=== PATIENT | male | born 1945 | race Caucasian/White ===

== ENCOUNTER 2018-06-24 08:49 | Day surgery (SDC) | payer MEDICARE, BC ==
[2018-06-24] MEDS: Polymyxin B/Trimethoprim 10 ML Bottle EYERT SCH ×4 (09:00→10:59)
[2018-06-24] MEDS: Brimonidine 0.2% Ophth Soln 5 ML Bottle EYERT SCH ×4 (09:05→10:59)
--- NOTE | 2018-06-24 09:09 | PCM.PREANE ---
Preanesthetic Assessment - Anesthesia/Transfusion/Family Hx Anesthesia History: Prior Anesthesia Without Reaction Family History of Anesthesia Reaction: No Transfusion History: No Prior Transfusion(s) - Review of Systems General: No Symptoms Pulmonary: Shortness of Breath (pt has asbestosis) Cardiovascular: No Symptoms Gastrointestinal: No Symptoms Neurological: No Symptoms Other: Reports: None - Physical Assessment NPO Status Date: 06/23/18 NPO Status Time: 21:00 Pulse: 61 O2 Sat by Pulse Oximetry: 97 Respiratory Rate: 16 Blood Pressure: 161/70 Temperature: 98.2 C ASA Class: 3 Mental Status: Alert & Oriented x3 Airway Class: Mallampati = 3 Dentition: Reports: Normal Dentition Thyro-Mental Finger Breadths: 2 Mouth Opening Finger Breadths: 2 ROM/Head Extension: Full Lungs: Clear to Auscultation, Decreased Breath Sounds (LLL) Cardiovascular: Regular Rate, Regular Rhythm - Allergies Allergies/Adverse Reactions: Allergies Allergy/AdvReac Type Severity Reaction Status Date / Time acetaminophen Allergy Cannot Verified 06/23/18 13:51 [From Lorcet (hydrocodone)] Remember hydrocodone Allergy Cannot Verified 06/23/18 13:51 [From Lorcet (hydrocodone)] Remember levofloxacin [From Levaquin] Allergy Cannot Verified 06/23/18 13:51 Remember - Anesthesia Plan Beta Daria: Metoprolol Med Last Dose Date: 06/23/18 Med Last Dose Time: 09:00 - Acknowledgements Anesthesia Type Planned: MAC Pt an Appropriate Candidate for the Planned Anesthesia: Yes Alternatives and Risks of Anesthesia Discussed w Pt/Guardian: Yes Pt/Guardian Understands and Agrees with Anesthesia Plan: Yes PreAnesthesia Questionnaire HEENT History: Reports: Cataract Cardiovascular History: Reports: Bypass (family history CAD), CAD, Hypertension , Stents Respiratory History: Reports: SOB, Other (See Below) (asbestosis) Genitourinary History: Reports: Renal Calculus Musculoskeletal History: Reports: None Neurological History: Reports: None Psychiatric History: Reports: None Endocrine/Metabolic History: Reports: Diabetes, Type I (BS 152 @ 0715) - Past Surgical History HEENT Surgical History: Reports: Myringotomy w Tube(s), Tonsillectomy Cardiovascular Surgical History: Reports: Coronary Artery Bypass, Coronary Artery Stent Respiratory Surgical History: Reports: Thoracentesis Male Surgical History: Reports: Lithotripsy (ESWL), Renal Calculus Musculoskeletal Surgical History: Reports: Carpal Tunnel, Other (See Below) ((L ) knee) - SUBSTANCE USE Smoking Status *Q: Never Smoker - HOME MEDS Home Medications: Home Meds Ezetimibe [Zetia] 10 mg PO DAILY 10/17/16 [History] Insulin Glargine,Hum.Rec.Anlog [Toujeo Solostar] 74 units SQ BEDTIME 10/17/16 [ History] Insulin Lispro [Humalog] 15 unit SQ 1200 10/17/16 [History] Losartan [Cozaar] 100 mg PO DAILY 10/17/16 [History] Metoprolol Succinate 50 mg PO DAILY 10/17/16 [History] Tamsulosin HCl [Flomax] 0.4 mg PO DAILY 10/17/16 [History] metFORMIN HCl [Glucophage] 1,000 mg PO BID 10/17/16 [History] Apixaban [Eliquis] 5 mg PO BID 06/23/18 [History] Azelastine HCl 1 dose NASBOTH BID 06/23/18 [History] Febuxostat [Uloric] 40 mg PO DAILY 06/23/18 [History] Finasteride 5 mg PO DAILY 06/23/18 [History] Insulin Lispro [Humalog] 18 units SQ QAM 06/23/18 [History] Insulin Lispro [Humalog] 24 units SQ QPM 06/23/18 [History] Vitamin E 400 unit PO DAILY 06/23/18 [History] amLODIPine [Norvasc] 2.5 mg PO DAILY 06/23/18 [History] atorvaSTATin Calcium [Lipitor] 40 mg PO DAILY 06/23/18 [History] hydroCHLOROthiazide [Hydrochlorothiazide] 25 mg PO DAILY 06/23/18 [History] - CURRENT (IN HOUSE) MEDS Current Meds: Current Medications Brimonidine Tartrate (Alphagan 0.2% Ophth Soln) 0 ml EYERT ASDIRECTED [place] Stop: 06/24/18 23:00 Cefuroxime Sodium (Zinacef) 0 mg EYERT ASDIRECTED [place] Stop: 06/24/18 23:00 Lidocaine HCl (Xylocaine-Mpf 1%) 0 ml INJECT ASDIRECTED [place] Stop: 06/24/18 23:00 Phenylephrine HCl (Julio-Synephrine 2.5% Ophth Soln) 0 ml EYERT ASDIRECTED [place] Stop: 06/24/18 23:00 Pilocarpine HCl (Pilocar 4% Ophth Soln) 0 ml EYERT ASDIRECTED [place] Stop: 06/24/18 23:00 Polymyxin/Trimethoprim Sulfate (Polytrim Ophth Soln) 0 ml EYERT ASDIRECTED [place] Stop: 06/24/18 23:00 Last Admin: 06/24/18 09:00 Dose: 1 drop Tetracaine HCl (Tetracaine 0.5% Steri-Unit Vilma) 0 ml EYERT ASDIRECTED [place] Stop: 06/24/18 23:00 Tropicamide (Mydriacyl 1% Ophth Soln) 0 ml EYERT ASDIRECTED [place] Stop: 06/24/18 23:00
[2018-06-24] MEDS: Phenylephrine 2.5% Ophth Soln 2 ML Bot EYERT SCH ×6 (09:10→10:37)
[2018-06-24] MEDS: Tropicamide 1% Ophth Soln 15 ML Bottle EYERT SCH ×4 (09:15→10:00)
[2018-06-24] MEDS: Tetracaine HCl/PF 0.5% 4 ML Bottle EYERT SCH ×5 (10:10→10:47)
[2018-06-24] MEDS: Lidocaine 1% PF 2 ML SDV INJECT SCH ×2 (10:21→10:46)
[2018-06-24] MEDS: Cefuroxime 10 MG/ML SYRINGE EYERT SCH ×2 (10:22→10:58)
[2018-06-24] MEDS: Pilocarpine 4% Ophth Soln 15 ML Bot EYERT SCH ×2 (10:22→10:59)
--- NOTE | 2018-06-24 11:05 | PCM48HPAN ---
Post Anesthesia Note - EVALUATION WITHIN 48HRS OF ANESTHETIC Vital Signs in Normal Range: Yes Patient Participated in Evaluation: Yes Respiratory Function Stable: Yes Airway Patent: Yes Cardiovascular Function Stable: Yes Hydration Status Stable: Yes Pain Control Satisfactory: Yes Nausea and Vomiting Control Satisfactory: Yes Mental Status Recovered: Yes Pulse Rate: 58 SaO2: 96 Resp Rate: 14 Temperature: 98.2 C Blood Pressure: 164/79
[2018-06-24 11:19] VITALS: BP 159/78
== END 2018-06-24 11:10 | disposition home or self-care (01) ==
LOC: JD.SDS 08:49
PROVIDERS: ATTEND Ophthalmology
DX: E10.36 Type 1 diabetes mellitus with diabetic cataract (principal); H25.813 Combined forms of age-related cataract, bilateral; I11.0 Hypertensive heart disease with heart failure; I50.9 Heart failure, unspecified; J44.9 Chronic obstructive pulmonary disease, unspecified; E78.00 Pure hypercholesterolemia, unspecified; M10.9 Gout, unspecified; H35.3131 Nonexudative age-related macular degeneration, bilateral, early dry stage; H35.363 Drusen (degenerative) of macula, bilateral; H02.834 Dermatochalasis of left upper eyelid; H02.831 Dermatochalasis of right upper eyelid; H02.413 Mechanical ptosis of bilateral eyelids; H16.103 Unspecified superficial keratitis, bilateral; Z79.82 Long term (current) use of aspirin; Z79.4 Long term (current) use of insulin; Z79.899 Other long term (current) drug therapy
CPT/HCPCS: 66984; A9270; J0697; J2001; V2632

== ENCOUNTER 2018-07-22 07:45 | Day surgery (SDC) | payer MEDICARE, BC ==
[2018-07-22] MEDS: Polymyxin B/Trimethoprim 10 ML Bottle EYELF SCH ×4 (07:55→09:54)
[2018-07-22] MEDS: Brimonidine 0.2% Ophth Soln 5 ML Bottle EYELF SCH ×4 (08:00→09:54)
[2018-07-22] MEDS: Phenylephrine 2.5% Ophth Soln 2 ML Bot EYELF SCH ×6 (08:05→09:35)
[2018-07-22] MEDS: Tropicamide 1% Ophth Soln 15 ML Bottle EYELF SCH ×4 (08:10→08:50)
--- NOTE | 2018-07-22 08:25 | PCM.PREANE ---
Preanesthetic Assessment - Anesthesia/Transfusion/Family Hx Anesthesia History: Prior Anesthesia Without Reaction Family History of Anesthesia Reaction: No Transfusion History: No Prior Transfusion(s) - Review of Systems General: No Symptoms Pulmonary: No Symptoms Cardiovascular: No Symptoms Gastrointestinal: No Symptoms Neurological: No Symptoms Other: Reports: None - Physical Assessment NPO Status Date: 07/22/18 NPO Status Time: 06:30 Pulse: 63 O2 Sat by Pulse Oximetry: 96 Respiratory Rate: 16 Blood Pressure: 171/75 Vital Signs: Last Vital Signs Temp 36.3 C 07/22/18 07:48 Pulse 63 07/22/18 08:18 Resp 16 07/22/18 07:48 BP 171/75 H 07/22/18 08:18 Pulse Ox 96 07/22/18 07:48 Height: 1.78 m Weight: 97.976 kg ASA Class: 3 Mental Status: Alert & Oriented x3 Airway Class: Mallampati = 2 Dentition: Reports: Normal Dentition Thyro-Mental Finger Breadths: 3 Mouth Opening Finger Breadths: 3 ROM/Head Extension: Full Lungs: Clear to Auscultation, Normal Respiratory Effort Cardiovascular: Regular Rate, Regular Rhythm - Lab Values: Laboratory Last Values POC Glucose 128 mg/dL (83-110) H 07/22/18 07:58 - Allergies Allergies/Adverse Reactions: Allergies Allergy/AdvReac Type Severity Reaction Status Date / Time acetaminophen Allergy Cannot Verified 07/21/18 14:35 [From Lorcet (hydrocodone)] Remember hydrocodone Allergy Cannot Verified 07/21/18 14:35 [From Lorcet (hydrocodone)] Remember levofloxacin [From Levaquin] Allergy Cannot Verified 07/21/18 14:35 Remember rivaroxaban [From Xarelto] Allergy Cannot Verified 07/21/18 14:35 Remember - Anesthesia Plan Beta Daria: Metoprolol Med Last Dose Date: 07/22/18 Med Last Dose Time: 08:20 - Acknowledgements Anesthesia Type Planned: MAC Pt an Appropriate Candidate for the Planned Anesthesia: Yes Alternatives and Risks of Anesthesia Discussed w Pt/Guardian: Yes Pt/Guardian Understands and Agrees with Anesthesia Plan: Yes PreAnesthesia Questionnaire HEENT History: Reports: Cataract Cardiovascular History: Reports: Bypass (family history CAD), CAD, Hypertension , Stents Respiratory History: Reports: SOB, Other (See Below) (asbestosis) Genitourinary History: Reports: Renal Calculus Musculoskeletal History: Reports: None Neurological History: Reports: None Psychiatric History: Reports: None Endocrine/Metabolic History: Reports: Diabetes, Type I (BS 152 @ 6815) - Past Surgical History HEENT Surgical History: Reports: Myringotomy w Tube(s), Tonsillectomy Cardiovascular Surgical History: Reports: Coronary Artery Bypass, Coronary Artery Stent Respiratory Surgical History: Reports: Thoracentesis Male Surgical History: Reports: Lithotripsy (ESWL), Renal Calculus Musculoskeletal Surgical History: Reports: Carpal Tunnel, Other (See Below) ((L ) knee) - SUBSTANCE USE Smoking Status *Q: Never Smoker - HOME MEDS Home Medications: Home Meds Ezetimibe [Zetia] 10 mg PO DAILY 10/17/16 [History] Insulin Glargine,Hum.Rec.Anlog [Toujeo Solostar] 74 units SQ BEDTIME 10/17/16 [ History] Insulin Lispro [Humalog] 15 unit SQ 1200 10/17/16 [History] Losartan [Cozaar] 100 mg PO DAILY 10/17/16 [History] Metoprolol Succinate 50 mg PO DAILY 10/17/16 [History] Tamsulosin HCl [Flomax] 0.4 mg PO DAILY 10/17/16 [History] metFORMIN HCl [Glucophage] 1,000 mg PO BID 10/17/16 [History] Apixaban [Eliquis] 5 mg PO BID 06/23/18 [History] Azelastine HCl 1 dose NASBOTH BID 06/23/18 [History] Febuxostat [Uloric] 40 mg PO DAILY 06/23/18 [History] Finasteride 5 mg PO DAILY 06/23/18 [History] Insulin Lispro [Humalog] 18 units SQ QAM 06/23/18 [History] Vitamin E 400 unit PO DAILY 06/23/18 [History] amLODIPine [Norvasc] 2.5 mg PO DAILY 06/23/18 [History] atorvaSTATin Calcium [Lipitor] 40 mg PO DAILY 06/23/18 [History] hydroCHLOROthiazide [Hydrochlorothiazide] 25 mg PO DAILY 06/23/18 [History] - CURRENT (IN HOUSE) MEDS Current Meds: Current Medications Brimonidine Tartrate (Alphagan 0.2% [facility] Soln) 0 ml EYELF ASDIRECTED [place] Stop: 07/22/18 18:00 Last Admin: 07/22/18 08:00 Dose: 1 drop Cefuroxime Sodium (Zinacef) 0 mg EYELF ASDIRECTED [place] Stop: 07/22/18 18:00 Lidocaine HCl (Xylocaine-Mpf 1%) 0 ml INJECT ASDIRECTED [place] Stop: 07/22/18 18:00 Metoprolol Succinate (Toprol Xl) 50 mg PO ONETIME ONE Stop: 07/22/18 08:31 Last Admin: 07/22/18 08:18 Dose: 50 mg Phenylephrine HCl (Julio-Synephrine 2.5% Ophth Soln) 0 ml EYELF ASDIRECTED [place] Stop: 07/22/18 18:00 Last Admin: 07/22/18 08:15 Dose: 1 drop Pilocarpine HCl (Pilocar 4% Ophth Soln) 0 ml EYELF ASDIRECTED [place] Stop: 07/22/18 18:00 Polymyxin/Trimethoprim Sulfate (Polytrim Ophth Soln) 0 ml EYELF ASDIRECTED [place] Stop: 07/22/18 18:00 Last Admin: 07/22/18 07:55 Dose: 1 drop Tetracaine HCl (Tetracaine 0.5% Steri-Unit Vilma) 0 ml EYELF ASDIRECTED [place] Stop: 07/22/18 18:00 Tropicamide (Mydriacyl 1% Ophth Soln) 0 ml EYELF ASDIRECTED [place] Stop: 07/22/18 18:00 Last Admin: 07/22/18 08:20 Dose: 1 drop
[2018-07-22] MEDS ORDERED: Metoprolol Succinate 50 MG Tab.ER PO ONE (08:30)
[2018-07-22] MEDS: Tetracaine HCl/PF 0.5% 4 ML Bottle EYELF SCH ×5 (08:55→09:40)
[2018-07-22] MEDS: Lidocaine 1% PF 2 ML SDV INJECT SCH ×2 (08:57→09:40)
[2018-07-22] MEDS: Pilocarpine 4% Ophth Soln 15 ML Bot EYELF SCH ×2 (08:58→09:54)
[2018-07-22] MEDS: Cefuroxime 10 MG/ML SYRINGE EYELF SCH ×2 (08:58→09:53)
--- NOTE | 2018-07-22 10:15 | PCM48HPAN ---
Post Anesthesia Note - EVALUATION WITHIN 48HRS OF ANESTHETIC Vital Signs in Normal Range: Yes Patient Participated in Evaluation: Yes Respiratory Function Stable: Yes Airway Patent: Yes Cardiovascular Function Stable: Yes Hydration Status Stable: Yes Pain Control Satisfactory: Yes Nausea and Vomiting Control Satisfactory: Yes Mental Status Recovered: Yes Pulse Rate: 63 Resp Rate: 16 Blood Pressure: 171/75
[2018-07-22 10:16] VITALS: BP 171/75
== END 2018-07-22 10:05 | disposition home or self-care (01) ==
LOC: JD.SDS 07:45
PROVIDERS: ATTEND Ophthalmology
DX: H25.812 Combined forms of age-related cataract, left eye (principal); H35.363 Drusen (degenerative) of macula, bilateral; H02.835 Dermatochalasis of left lower eyelid; H02.834 Dermatochalasis of left upper eyelid; H02.413 Mechanical ptosis of bilateral eyelids; E11.9 Type 2 diabetes mellitus without complications; Z96.1 Presence of intraocular lens; I11.0 Hypertensive heart disease with heart failure; J44.9 Chronic obstructive pulmonary disease, unspecified; E78.00 Pure hypercholesterolemia, unspecified; Z79.01 Long term (current) use of anticoagulants; Z79.4 Long term (current) use of insulin; Z79.82 Long term (current) use of aspirin; Z79.899 Other long term (current) drug therapy; Z87.442 Personal history of urinary calculi; Z88.1 Allergy status to other antibiotic agents; Z88.5 Allergy status to narcotic agent
CPT/HCPCS: 66984; 82962; A9270; C1780; J0697; J2001

== ENCOUNTER → 2019-01-29 | Day surgery (SDC) | payer MEDICARE, BC ==
[~2019-01-29] MED LIST: Phenylephrine 2.5% Ophth Soln 2 ML Bot EYEBOTH SCH; Tropicamide 1% Ophth Soln 15 ML Bottle EYEBOTH SCH
[2019-01-29] MEDS: Brimonidine 0.2% Ophth Soln 5 ML Bottle EYEBOTH SCH ×2 (10:34→10:59)
[2019-01-29 13:51] VITALS: BP 167/80; PULSE 59
== END ==
LOC: JD.SDS 09:06
PROVIDERS: ATTEND Ophthalmology
DX: E11.36 Type 2 diabetes mellitus with diabetic cataract (principal); H26.493 Other secondary cataract, bilateral; H35.3131 Nonexudative age-related macular degeneration, bilateral, early dry stage; H16.223 Keratoconjunctivitis sicca, not specified as Sjogren's, bilateral; H35.373 Puckering of macula, bilateral; I11.0 Hypertensive heart disease with heart failure; I50.9 Heart failure, unspecified; J44.9 Chronic obstructive pulmonary disease, unspecified; E11.9 Type 2 diabetes mellitus without complications; M10.9 Gout, unspecified; Z96.1 Presence of intraocular lens; Z79.82 Long term (current) use of aspirin; Z79.4 Long term (current) use of insulin; Z79.899 Other long term (current) drug therapy; Z88.5 Allergy status to narcotic agent; Z88.8 Allergy status to other drugs, medicaments and biological substances; Z88.1 Allergy status to other antibiotic agents

== ENCOUNTER 2021-09-28 23:18 | Emergency (ER) | payer MEDICARE, BC ==
[2021-09-28] MEDS ORDERED: Lactated Ringers 1,000 ML IV ONE (23:51)
[2021-09-29] MEDS ORDERED: Lactated Ringers 1,000 ML IV STA (03:45)
[2021-09-29 04:33] VITALS: BP 141/68; PULSE 50
== END 2021-09-29 04:20 | disposition home or self-care (01) ==
LOC: JD.ED 23:18
DX: R00.1 Bradycardia, unspecified (principal); I10 Essential (primary) hypertension; E10.9 Type 1 diabetes mellitus without complications; Z88.5 Allergy status to narcotic agent; Z88.1 Allergy status to other antibiotic agents; Z79.899 Other long term (current) drug therapy
CPT/HCPCS: 36415; 71045; 80053; 81001; 83735; 83880; 84484; 85025; 85610; 93005; 96360; 96361; 99285; J7120; 93010; 99284

== ENCOUNTER 2022-04-04 17:06 | Emergency (ER) | payer MEDICARE, BC ==
[2022-04-04 17:25] VITALS: BP 161/72; PULSE 74
[2022-04-04] MEDS ORDERED: Sodium Chloride 0.9% 1,000 ML IV STA (19:35)
[2022-04-04] MEDS ORDERED: Sodium Chloride 0.9% 10 ML Syringe FLUSH PRN (19:35)
[2022-04-04] MEDS ORDERED: Iopamidol 755 Mg/ML 100 ML Bottle IVPUSH ONE (20:11)
[2022-04-04] MEDS ORDERED: Sodium Chloride 0.9% 10 ML Syringe FLUSH ONE (20:11)
[2022-04-04] MEDS ORDERED: Sodium Chloride 0.9% 100 ML IV SCH (20:15)
== END 2022-04-04 21:15 | disposition home or self-care (01) ==
LOC: JD.ED 17:06
DX: J18.9 Pneumonia, unspecified organism (principal); I25.10 Atherosclerotic heart disease of native coronary artery without angina pectoris; I10 Essential (primary) hypertension; E10.9 Type 1 diabetes mellitus without complications; Z95.1 Presence of aortocoronary bypass graft; Z88.5 Allergy status to narcotic agent; Z88.8 Allergy status to other drugs, medicaments and biological substances; Z88.1 Allergy status to other antibiotic agents; Z79.01 Long term (current) use of anticoagulants; Z79.82 Long term (current) use of aspirin; Z79.899 Other long term (current) drug therapy
CPT/HCPCS: 36415; 71275; 71275-26; 80053; 83880; 85025; 85379; 96360; 99285-25; J3490; J7030; Q9967